=== PATIENT | male | born 1935 | race Two or more races ===

== ENCOUNTER 2017-10-16 09:55 | Outpatient (CLI) | payer MEDICARE, OTHER ==
[2017-10-16] MEDS ORDERED: BARIUM SULFATE SUSP 450 ML BOTTLE PO ONE ×2 (10:29→11:10)
[2017-10-16] MEDS ORDERED: CT SWABBABLE VALVE TRANS SET 1 EA INFUS.SET MC ONE (11:51)
[2017-10-16] MEDS ORDERED: IV NS 0.9% 250 ML IV ONE (11:51)
[2017-10-16] MEDS ORDERED: IOHEXOL-300 100 ML VIAL IV ONE (11:51)
== END 2017-10-16 23:59 | disposition home or self-care (01) ==
LOC: CT 09:55
PROVIDERS: ATTEND Surgery
DX: Z01.818 Encounter for other preprocedural examination (principal); I70.0 Atherosclerosis of aorta; K52.9 Noninfective gastroenteritis and colitis, unspecified; N40.0 Benign prostatic hyperplasia without lower urinary tract symptoms; N32.3 Diverticulum of bladder
CPT/HCPCS: 71046; 74177; J7050; Q9967

== ENCOUNTER 2017-11-02 09:41 | Day surgery (SDC) | payer MEDICARE, OTHER ==
[2017-11-02] MEDS ORDERED: MIDAZOLAM HCL 2 MG/2ML VIAL ONE (11:24)
[2017-11-02] MEDS ORDERED: FENTANYL PF 100MCG/2ML AMPUL ONE (11:24)
[2017-11-02] MEDS ORDERED: SUCCINYLCHOLINE CHLORIDE 20 MG/ML VIAL ONE (11:30)
== END 2017-11-02 13:50 | disposition home or self-care (01) ==
LOC: DS 09:41
PROVIDERS: ATTEND Surgery
DX: K29.70 Gastritis, unspecified, without bleeding (principal); K44.9 Diaphragmatic hernia without obstruction or gangrene; K62.89 Other specified diseases of anus and rectum; K57.30 Diverticulosis of large intestine without perforation or abscess without bleeding; N40.0 Benign prostatic hyperplasia without lower urinary tract symptoms
CPT/HCPCS: 71045-TC; 88305-TC; 88313-TC; 88342; J0330; J2250; J3010; Z7610

== ENCOUNTER 2019-01-01 19:59 | Emergency (ER) | payer MEDICARE, OTHER ==
[~2019-01-01] VITALS: Ht 165.1 cm; Wt 68.0 kg
--- NOTE | 2019-01-01 19:59 | NUR ---
PT BIB SON C/O DIZZINESS SINCE MIDNIGHT. TOOK MECLIZINE AROUND 5PM, PT IS AAOX4, NOT IN RESPIRATORY DISTRESS, HOOKED TO MONITOR, KEPT RESTED AND COMFORTABLE,WILL CONTINUE TO MONITOR.
--- NOTE | 2019-01-01 20:35 | NUR ---
SEEN AND EXAMINED BY .
--- NOTE | 2019-01-01 20:42 | NUR ---
IV LINE ESTABLISHED, BLOOD DRAWN AND SENT TO LAB.
[2019-01-01] MEDS ORDERED: METOCLOPRAMIDE HCL 10 MG/2 ML VIAL ONE (20:44)
[2019-01-01] MEDS ORDERED: DIAZEPAM 5 MG TABLET ONE (20:47)
[2019-01-01 20:55] LABS: BASOPHILS % (AUTO) 0.3 % (0.0-2.0); HEMATOCRIT 38 % (39-51); HEMOGLOBIN 12.7 g/dL (13.5-17.5); LYMPHOCYTES # (AUTO) 2.5 /CMM (0.8-4.8); LYMPHOCYTES % (AUTO) 36.6 % (20.0-44.0); MEAN CORPUSCULAR HGB CONC 33 g/dl (31.0-36.0); MEAN CORPUSCULAR VOLUME 91 fL (80-96); MONOCYTES # (AUTO) 0.5 /CMM (0.1-1.30); MONOCYTES % (AUTO) 6.9 % (2.0-12.0); NEUTROPHILS # (AUTO) 3.7 /CMM (1.8-8.9); NEUTROPHILS % (AUTO) 55.2 % (43.0-81.0); PLATELET COUNT (AUTO) 270 /CMM (150-450); RED BLOOD CELL COUNT(AUTO) 4.19 MIL/uL (4.5-6.0); WHITE BLOOD COUNT (AUTO) 6.7 K/uL (4.3-11.0)
--- NOTE | 2019-01-01 20:56 | NUR ---
PT IS WHEELED TO CT SCAN VIA [facility].
[2019-01-01] MEDS ORDERED: IV NS 0.9% 500 ML BAG IV ONE (21:00)
[2019-01-01] MEDS ORDERED: DIAZEPAM 5 MG/ML 2 ML DISP.SYRIN IV ONE (21:00)
[2019-01-01] MEDS ORDERED: METOCLOPRAMIDE HCL 10 MG/2 ML VIAL IV ONE (21:00)
[2019-01-01 21:15] LABS: CALCIUM, SERUM 9.2 mg/dL (8.5-10.1); CARBON DIOXIDE 27 mmol/L (21-32); CHLORIDE 103 mmol/L (98-107); CREATININE 0.8 mg/dL (0.6-1.3); GLUCOSE 185 mg/dL (74-106); POTASSIUM 4.1 mmol/L (3.5-5.1); SODIUM SERUM 138 mmol/L (136-145); UREA NITROGEN, BLOOD 14 mg/dL (7-18)
[2019-01-01 21:20] LABS: ALANINE AMINOTRANSFERASE 25 U/L (12-78); ALBUMIN 3.9 g/dL (3.4-5.0); ALKALINE PHOSPHATASE 69 U/L (46-116); ASPARTATE AMINOTRANSFERASE 17 U/L (15-37); BILIRUBIN,DIRECT 0.1 mg/dL (0.0-0.2); BILIRUBIN,TOTAL 0.2 mg/dL (0.2-1.0); TOTAL PROTEIN, SERUM 7.9 g/dL (6.4-8.2)
[2019-01-01] MEDS ORDERED: DIAZEPAM 10 MG TABLET PO ONE (21:30)
--- NOTE | 2019-01-01 22:41 | NUR ---
STRAIGHT CATH INSERTED, UO OF 1500ML COLLECTED.
[2019-01-01 23:07] VITALS: BP 134/82
--- NOTE | 2019-01-01 23:07 | NUR ---
IV removed. Catheter intact and site benign. Pressure and 4x4 applied to site. No bleeding noted. Patient discharged to home in stable condition. Written and verbal after care instructions given. Patient verbalizes understanding of instruction.
== END 2019-01-01 23:08 | disposition home or self-care (01) ==
LOC: ER 20:06
DX: R42 Dizziness and giddiness (principal); R33.9 Retention of urine, unspecified; R51 Headache; I10 Essential (primary) hypertension; E11.9 Type 2 diabetes mellitus without complications; N40.0 Benign prostatic hyperplasia without lower urinary tract symptoms; Z88.1 Allergy status to other antibiotic agents; Z88.2 Allergy status to sulfonamides
CPT/HCPCS: 36415; 51701; 70450; 80048; 80076; 84484; 85025; 93005; 96374; 99284; J2765; J7030; J7040

== ENCOUNTER 2024-04-13 11:20 | Inpatient (IN) | payer MEDICARE, OTHER ==
[~2024-04-13] VITALS: Ht 165.1 cm; Wt 54.4 kg
[2024-04-13 12:23] LABS: CARBON DIOXIDE 28 mmol/L (21-32); CHLORIDE 106 mmol/L (98-107); CREATININE 1.1 mg/dL (0.6-1.3); GLUCOSE 101 mg/dL (74-106); SODIUM SERUM 141 mmol/L (136-145); UREA NITROGEN, BLOOD 17 mg/dL (7-18)
[2024-04-13 12:37] LABS: ALANINE AMINOTRANSFERASE 27 U/L (12-78); ALBUMIN 3.5 g/dL (3.4-5.0); ALKALINE PHOSPHATASE 81 U/L (46-116); ASPARTATE AMINOTRANSFERASE 18 U/L (15-37); BILIRUBIN,DIRECT 0.3 mg/dL (0.0-0.2); BILIRUBIN,TOTAL 0.7 mg/dL (0.2-1.0); NT-PRO BNP 5045 pg/mL (0-125); TOTAL PROTEIN, SERUM 8.2 g/dL (6.4-8.2)
[2024-04-13] MEDS ORDERED: GABA-532 PO (12:41)
[2024-04-13] MEDS ORDERED: METO25TA4 PO (12:41)
[2024-04-13] MEDS ORDERED: FERR325T29 PO (12:41)
[2024-04-13] MEDS ORDERED: DOCU100C58 PO (12:41)
[2024-04-13] MEDS ORDERED: MAGN400T52 PO (12:41)
[2024-04-13] MEDS ORDERED: ASCO-495 PO (12:41)
[2024-04-13] MEDS ORDERED: CLOP75TA15 PO (12:41)
[2024-04-13] MEDS ORDERED: CHOL200074 PO (12:41)
[2024-04-13] MEDS ORDERED: ATOR80TA PO (12:41)
[2024-04-13] MEDS ORDERED: LOSA25TA27 PO (12:41)
[2024-04-13 12:51] LABS: BASOPHILS % (AUTO) 0.2 % (0.0-2.0); EOSINOPHILS % (AUTO) 0.4 % (0.0-6.0); HEMATOCRIT 38 % (39-51); HEMOGLOBIN 12.7 g/dL (13.5-17.5); LYMPHOCYTES # (AUTO) 1.8 K/uL (0.8-4.8); LYMPHOCYTES % (AUTO) 30.8 % (20.0-44.0); MEAN CORPUSCULAR HEMOGLOBIN 32 PG (26.0-33.0); MEAN CORPUSCULAR HGB CONC 33 g/dl (31.0-36.0); MEAN CORPUSCULAR VOLUME 95 fL (80-96); MONOCYTES # (AUTO) 0.5 K/uL (0.1-1.30); MONOCYTES % (AUTO) 8.2 % (2.0-12.0); NEUTROPHILS # (AUTO) 3.6 K/uL (1.8-8.9); NEUTROPHILS % (AUTO) 60.4 % (43.0-81.0); PLATELET COUNT (AUTO) 319 K/uL (150-450); RED BLOOD CELL COUNT(AUTO) 4.04 MIL/uL (4.5-6.0); RED CELL DISTRIBUTION WIDTH 13.8 % (11.5-15.0); WHITE BLOOD COUNT (AUTO) 5.9 K/uL (4.3-11.0)
[2024-04-13] MEDS: ACETAMINOPHEN ES 500 MG TABLET PO ONE (13:00)
[2024-04-13] MEDS ORDERED: IV NS 0.9% 1,000 ML IV PRN (13:30)
[2024-04-13] MEDS ORDERED: ONDANSETRON HCL/PF 4 MG/2 ML VIAL IVP PRN (13:30)
[2024-04-13] MEDS ORDERED: MAGNESIUM HYDROXIDE 30 ML UDC PO PRN (13:30)
[2024-04-13] MEDS ORDERED: Z GUARD REMEDY 4 OZ OINT TP PRN (13:30)
[2024-04-13] MEDS ORDERED: ACETAMINOPHEN 325 MG TABLET PO PRN (13:30)
[2024-04-13] MEDS ORDERED: MAG HYDROX/AL HYDROX/SIMETH 30 ML UDC PO PRN (13:30)
[2024-04-13] MEDS ORDERED: METHOCARBAMOL (500MG) 500 MG TABLET ONE (13:46)
[2024-04-13] MEDS ORDERED: ACETAMINOPHEN ES 500 MG TABLET ONE (13:46)
[2024-04-13] MEDS ORDERED: ALBUTEROL FS 2.5 MG/3 ML VIAL.NEB CONTNEB PRN (14:00)
[2024-04-13] MEDS: METHOCARBAMOL (750MG) 750 MG TABLET PO SCH (14:11)
[2024-04-13 16:00] VITALS: BP 139/80; TEMP 98.1; O2SAT 98
[2024-04-13] MEDS: ASCORBIC ACID 500 MG TABLET PO SCH (16:46)
[2024-04-13] MEDS: IV NS 0.9% 1,000 ML IV PRN (16:47)
[2024-04-13] MEDS: FERROUS SULFATE (325 MG) 325 MG/TAB TABLET PO SCH (16:47)
[2024-04-13] MEDS: GABAPENTIN 100 MG CAPSULE PO SCH (16:47)
[2024-04-13] MEDS: ACETAMINOPHEN ES 500 MG TABLET PO PRN (16:56)
[2024-04-13] MEDS: DOCUSATE SODIUM 100 MG CAPSULE PO SCH ×2 (16:57)
[2024-04-13] MEDS ORDERED: MESA800T PO (17:01)
[2024-04-13] MEDS: IBUPROFEN 600 MG TABLET PO PRN (19:52)
[2024-04-13 20:00] VITALS: BP 135/82; TEMP 97.7; O2SAT 96
[2024-04-13] MEDS: ATORVASTATIN 40 MG TABLET PO SCH (21:26)
[2024-04-13] MEDS: ENOXAPARIN SODIUM 40 MG/0.4 ML DISP.SYRIN SQ SCH (21:29)
[2024-04-13] MEDS ORDERED: TEMAZEPAM 7.5 MG CAPSULE PO PRN (23:00)
[2024-04-14 07:12] LABS: CALCIUM, SERUM 8.6 mg/dL (8.5-10.1); CREATININE 1.1 mg/dL (0.6-1.3); MAGNESIUM 2.3 mg/dL (1.8-2.4); PHOSPHORUS 2.9 mg/dL (2.5-4.9); POTASSIUM 3.5 mmol/L (3.5-5.1)
[2024-04-14 07:38] LABS: BASOPHILS % (AUTO) 0.2 % (0.0-2.0); EOSINOPHILS # (AUTO) 0.1 K/uL (0.0-0.7); EOSINOPHILS % (AUTO) 0.9 % (0.0-6.0); HEMATOCRIT 36 % (39-51); HEMOGLOBIN 12.5 g/dL (13.5-17.5); LYMPHOCYTES # (AUTO) 2.2 K/uL (0.8-4.8); LYMPHOCYTES % (AUTO) 35.6 % (20.0-44.0); MEAN CORPUSCULAR HEMOGLOBIN 33 PG (26.0-33.0); MEAN CORPUSCULAR HGB CONC 35 g/dl (31.0-36.0); MEAN CORPUSCULAR VOLUME 93 fL (80-96); MONOCYTES # (AUTO) 0.5 K/uL (0.1-1.30); MONOCYTES % (AUTO) 8.6 % (2.0-12.0); NEUTROPHILS # (AUTO) 3.3 K/uL (1.8-8.9); NEUTROPHILS % (AUTO) 54.7 % (43.0-81.0); PLATELET COUNT (AUTO) 301 K/uL (150-450); RED BLOOD CELL COUNT(AUTO) 3.83 MIL/uL (4.5-6.0); RED CELL DISTRIBUTION WIDTH 13.8 % (11.5-15.0); WHITE BLOOD COUNT (AUTO) 6.1 K/uL (4.3-11.0)
[2024-04-14 08:00] VITALS: BP 159/95; TEMP 97.3; O2SAT 97
[2024-04-14] MEDS: PANTOPRAZOLE 40 MG TABLET.DR PO SCH (09:02)
[2024-04-14] MEDS: CHOLECALCIFEROL 1,000 UNIT TABLET (VIT D3) PO SCH (09:03)
[2024-04-14] MEDS: MAGNESIUM OXIDE 400 MG TABLET PO SCH (09:04)
[2024-04-14] MEDS: CLOPIDOGREL BISULFATE 75 MG TABLET PO SCH (09:04)
[2024-04-14] MEDS: METOPROLOL SUCCINATE 25 MG TAB.SR.24H PO SCH (09:04)
[2024-04-14] MEDS: LOSARTAN POTASSIUM 25 MG TABLET PO SCH (09:05)
[2024-04-14] MEDS: VALSARTAN 80 MG TABLET PO SCH (11:31)
[2024-04-14] MEDS: APIXABAN 5 MG TABLET PO SCH (11:32)
[2024-04-14] MEDS: AMIODARONE HCL 200 MG TABLET PO SCH (11:32)
[2024-04-14 11:51] LABS: THYROID STIMULATING HORMONE 1.87 uIU/mL (0.358-3.74)
[2024-04-14 16:00] VITALS: BP 160/100; TEMP 98.2; O2SAT 97
[2024-04-14 16:43] LABS: THYROID STIMULATING HORMONE 1.48 uIU/mL (0.358-3.74)
[2024-04-14 17:15] VITALS: BP 155/55
[2024-04-14 20:00] VITALS: BP 150/73; TEMP 98.1; O2SAT 95
[2024-04-15] VITALS: BP 161/87; TEMP 97.7; O2SAT 96
[2024-04-15 04:00] VITALS: BP 149/82; TEMP 97.8; O2SAT 97
[2024-04-15 07:04] LABS: BASOPHILS % (AUTO) 0.2 % (0.0-2.0); EOSINOPHILS # (AUTO) 0.1 K/uL (0.0-0.7); EOSINOPHILS % (AUTO) 0.9 % (0.0-6.0); HEMATOCRIT 34 % (39-51); HEMOGLOBIN 11.8 g/dL (13.5-17.5); LYMPHOCYTES # (AUTO) 2.2 K/uL (0.8-4.8); LYMPHOCYTES % (AUTO) 35.6 % (20.0-44.0); MEAN CORPUSCULAR HEMOGLOBIN 32 PG (26.0-33.0); MEAN CORPUSCULAR HGB CONC 35 g/dl (31.0-36.0); MEAN CORPUSCULAR VOLUME 93 fL (80-96); MONOCYTES # (AUTO) 0.5 K/uL (0.1-1.30); NEUTROPHILS # (AUTO) 3.3 K/uL (1.8-8.9); NEUTROPHILS % (AUTO) 54.3 % (43.0-81.0); PLATELET COUNT (AUTO) 288 K/uL (150-450); RED BLOOD CELL COUNT(AUTO) 3.71 MIL/uL (4.5-6.0); RED CELL DISTRIBUTION WIDTH 13.9 % (11.5-15.0); WHITE BLOOD COUNT (AUTO) 6.1 K/uL (4.3-11.0)
[2024-04-15 07:30] LABS: CREATININE 0.9 mg/dL (0.6-1.3); POTASSIUM 3.5 mmol/L (3.5-5.1)
[2024-04-15 08:00] VITALS: BP 104/52; TEMP 98; O2SAT 93
[2024-04-15] MEDS: AMLODIPINE BESYLATE 5 MG TABLET PO SCH (09:26)
[2024-04-15 15:43] VITALS: BP 129/80; TEMP 97.9; O2SAT 96
[2024-04-15 20:00] VITALS: BP 106/65; TEMP 97.9; O2SAT 95
[2024-04-15 20:01] VITALS: BP 106/65; TEMP 97.9; O2SAT 95
[2024-04-16 08:10] LABS: FOLIC ACID > 20.0 ng/mL (>3.0)
== END 2024-04-15 21:05 | disposition short-term general hospital (02) | DRG 552 ==
LOC: ER 11:24 → MED 15:12 → TELE 04-14 10:16
PROVIDERS: ADMIT Nurse Practitioner Family; ATTEND Internal Medicine
DX: S32.011A Stable burst fracture of first lumbar vertebra, initial encounter for closed fracture (principal); R26.89 Other abnormalities of gait and mobility; R53.1 Weakness; E11.40 Type 2 diabetes mellitus with diabetic neuropathy, unspecified; E55.9 Vitamin D deficiency, unspecified; I25.10 Atherosclerotic heart disease of native coronary artery without angina pectoris; M19.90 Unspecified osteoarthritis, unspecified site; D64.9 Anemia, unspecified; E78.5 Hyperlipidemia, unspecified; I10 Essential (primary) hypertension; I48.0 Paroxysmal atrial fibrillation; Z88.0 Allergy status to penicillin; Z88.2 Allergy status to sulfonamides; Z20.822 Contact with and (suspected) exposure to COVID-19; M25.552 Pain in left hip; M25.551 Pain in right hip; K40.20 Bilateral inguinal hernia, without obstruction or gangrene, not specified as recurrent; N40.0 Benign prostatic hyperplasia without lower urinary tract symptoms; Z79.02 Long term (current) use of antithrombotics/antiplatelets; X58.XXXA Exposure to other specified factors, initial encounter; Y93.9 Activity, unspecified; Y92.009 Unspecified place in unspecified non-institutional (private) residence as the place of occurrence of the external cause
CPT/HCPCS: 36415; 70450-TC; 71045-TC; 72131-TC; 72170-TC; 80048-TC; 80076-TC; 82550-TC; 82607-TC; 82728-TC; 82962-TC; 83540-TC; 83735-TC; 83880; 83921; 84100-TC; 84425; 84439-TC; 84443-TC; 84484-TC; 85025-TC; 93307-TC; 97110-TC; 97116-TC; 97530-TC; A4223; G0378; J1650; J7030